=== PATIENT | female | born 1960 | race Caucasian/White ===

== ENCOUNTER 2020-08-11 13:53 | Emergency (ER) | payer MEDICARE | END 2020-08-11 16:15 | disposition home or self-care (01) | LOC: FER 13:53 | DX: M20.012 Mallet finger of left finger(s) (principal); I10 Essential (primary) hypertension; E11.9 Type 2 diabetes mellitus without complications; Z79.84 Long term (current) use of oral hypoglycemic drugs; Z79.899 Other long term (current) drug therapy | CPT/HCPCS: 73140 ==